=== PATIENT | male | born 1990 | race Caucasian/White ===

== ENCOUNTER 2018-04-20 01:37 | Emergency (ER) | payer SELFPAY ==
[~2018-04-20] VITALS: Ht 177.8 cm; Wt 75.0 kg
[2018-04-20 01:47] VITALS: BP 138/94; PULSE 77; RESP 18; TEMP 98; O2SAT 98
--- NOTE | 2018-04-20 01:57 | PD ---
HPI Chief Complaint: Alcohol/Drug Intoxication Time Seen by Provider: 01:48 Travel History International Travel<30 days: No Contact w/Intl Traveler<30days: No Traveled to known affect area: No History of Present Illness HPI 27yo M with no significant PMH presents to the ED with heroin overdose. Pt was brought in by [facility] because he was brought to the crisis center and vomiting and admitted to injecting a mixture of crack cocaine and heroin today. Pt was falling asleep en route and there was one point when he was not breathing so given narcan 0.4mg by [facility]. Pt woke up after and is complaining of nausea, headache. Pt told me he cant be sure that he didnt hit his head but thinks he didnt. Denies any chest pain, sob, abdominal pain, focal weakness or numbness. Denies any suicidal ideation, was just trying to get high. PFSH Past Medical History Medical History: Unable to Obtain Tetanus Vaccination: Unknown Influenza Vaccination: No Past Surgical History Surgical History: Unable to Obtain Social History Alcohol Use: Yes Tobacco Use: Yes Substance Use: Yes (HEROIN, CRACK) Allergies-Medications (Allergen,Severity, Reaction): Coded Allergies: Penicillins (Verified Allergy, Unknown, 04/20/18) Reported Meds & Prescriptions Reported Meds & Active Scripts Active No Active Prescriptions or Reported Medications Review of Systems Except as stated in HPI: all other systems reviewed are Neg Physical Exam Narrative GENERAL: 27yo M in mild distress. SKIN: Focused skin assessment warm/dry. HEAD: Atraumatic. Normocephalic. EYES: Pupils equal and round. No scleral icterus. No injection or drainage. ENT: No nasal bleeding or discharge. Mucous membranes pink and moist. NECK: Trachea midline. No JVD. CARDIOVASCULAR: Regular rate and rhythm. No murmur appreciated. RESPIRATORY: No accessory muscle use. Clear to auscultation. Breath sounds equal bilaterally. GASTROINTESTINAL: Abdomen soft, non-tender, nondistended. MUSCULOSKELETAL: No obvious deformities. No clubbing. No cyanosis. No edema. NEUROLOGICAL: Awake and answers questions. No obvious cranial nerve deficits. Motor grossly within normal limits in all extremities. Sensation intact. Normal speech. Data Data Last Documented VS Vital Signs Date Time Temp Pulse Resp B/P (MAP) Pulse Ox O2 Delivery O2 Flow Rate FiO2 04/20/18 05:04 04/20/18 02:15 94 04/20/18 01:47 98.0 77 18 Room Air Orders Orders Ct Brain W/O Iv Contrast(Rout) (04/20/18 ) Ondansetron Odt (Zofran Odt) (04/20/18 02:00) Sodium Chlor 0.9% 1000 Ml Inj (Ns 1000 M (04/20/18 02:00) End Tidal Co2 (Etco2) (04/20/18 ) Chest, Single Ap (04/20/18 ) Acetaminophen (Tylenol) (04/20/18 02:00) Ed Discharge Order (04/20/18 05:03) [facility] Medical Decision Making Medical Screen Exam Complete: Yes Emergency Medical Condition: Yes Differential Diagnosis Heroin overdose vs. aspiration vs. ICH Narrative Course 27yo M here with heroin overdose. Pt was given narcan by [facility]. Pt placed on end tidal CO2. CXR negative. CT brain negative. Pt given acetaminophen, zofran and NS IVF. Pt has been observed in the ED without need for another dose of narcan. Pt has been observed in the ED for a few hours and did not need need another dose of narcan. He is awake, alert and no longer nauseous. Ambulating in the ED without assistance and wants to go home. Return precautions given. Diagnosis Primary Impression: Heroin overdose Qualified Codes: T40.1X1A - Poisoning by heroin, accidental (unintentional), initial encounter Patient Instructions: General Instructions Departure Forms: Tests/Procedures Additional Instructions: Please follow up with your primary care physician in 2-3 days. Return to the ED if symptoms worsen. Med/Other Pt SpecificInfo: No Change to Meds Scripts No Active Prescriptions or Reported Meds Disposition: 01 DISCHARGE HOME Condition: Stable Winsome Brito Apr 20, 2018 01:57
[2018-04-20] MEDS ORDERED: ACETAMINOPHEN 325 MG TAB PO ONE (02:00)
[2018-04-20] MEDS ORDERED: ONDANSETRON ODT 4 MG TAB PO ONE (02:00)
[2018-04-20] MEDS ORDERED: SODIUM CHLOR 0.9% 1000 ML INJ 1,000 ML IV ONE (02:00)
[2018-04-20 02:15] VITALS: O2SAT 94
--- NOTE | 2018-04-20 02:27 | RADRPT ---
EXAM DATE: 04/20/2018 2:15 AM EDT AGE/SEX: 27 years / Male INDICATIONS: Shortness of breath. CLINICAL DATA: This is the patient's initial encounter. Patient reports that signs and symptoms have been present for 1 day and indicates a pain score of 0/10. MEDICAL/SURGICAL HISTORY: None. None. COMPARISON: No prior exams available for comparison. FINDINGS: A single AP view of the chest demonstrates the lungs to be symmetrically aerated without evidence of mass, infiltrate or effusion. The cardiomediastinal contours are unremarkable. Osseous structures a re intact. CONCLUSION: No active disease. Electronically signed by: Grey Phillips MD 04/20/2018 2:26 AM EDT
--- NOTE | 2018-04-20 02:28 | RADRPT ---
EXAM DATE: 04/20/2018 2:19 AM EDT AGE/SEX: 27 years / Male INDICATIONS: Altered mental status. Possible overdose. CLINICAL DATA: This is the patient's initial encounter. Patient reports that signs and symptoms have been present for 1 day and indicates a pain score of 0/10. MEDICAL/SURGICAL HISTORY: . None. RADIATION DOSE: 56.35 CTDI (mGy) COMPARISON: No prior exams available for comparison. TECHNIQUE: CT of the head without contrast. Using automated exposure control and adjustment of the mA and/or kV according to patient size, radiation dose was kept as low as reasonably achievable to ob tain optimal diagnostic quality images. FINDINGS: Cerebrum: The ventricles are normal for age. No evidence of midline shift, mass lesion, hemorrhage or acute infarction. No extraaxial fluid collections are seen. Posterior Fossa: The cerebellum and brainstem are intact. The 4th ventricle is midline. The cerebe llopontine angle is unremarkable. Extracranial: The visualized portion of the orbits is intact. Skull: The calvaria is intact. No evidence of skull fracture. CONCLUSION: 1. No acute intracranial abnormalities. Electronically signed by: Grey Phillips MD 04/20/2018 2:27 AM EDT
== END 2018-04-20 05:17 | disposition home or self-care (01) ==
LOC: NEPC 01:37
DX: T40.1X1A Poisoning by heroin, accidental (unintentional), initial encounter (principal); R11.0 Nausea; R51 Headache; F14.90 Cocaine use, unspecified, uncomplicated; F11.90 Opioid use, unspecified, uncomplicated; Z88.0 Allergy status to penicillin; Z72.0 Tobacco use
CPT/HCPCS: 70450; 71045; 96360; 99284; J7030